=== PATIENT | male | born 1995 | race Caucasian/White ===

== ENCOUNTER 2023-01-18 08:57 | Emergency (ER) | payer BC, SELFPAY ==
[2023-01-18 09:10] VITALS: BP 144/93; PULSE 83; RESP 16; TEMP 36.5; O2SAT 99; BMI 21.9
--- NOTE | 2023-01-18 09:23 | ED.GENADULT ---
HPI - General Adult General Chief complaint: Animal Bite Stated complaint: dog bite Time Seen by Provider: 01/18/23 09:11 History of Present Illness HPI narrative: Patient is a 19-year-old diabetic male who got bit by a stray dog today did not capture the dog does not know the dog's whereabouts. He thinks he is up-to-date on tetanus but we will check that with the state. He has a small puncture wound and several scratches about his right hand the puncture wound is over his volar PIP area. No other injuries reported. No fevers. He does report the fingers little bit stiff. Related Data Home Medications Medication Instructions Recorded Confirmed insulin lispro 100 unit/mL 0 - 90 unit subcut DAILY 01/18/23 01/18/23 subcutaneous solution (Humalog U-100 Insulin) Previous Rx's Medication Instructions Recorded amoxicillin 875 mg-potassium 1 tab PO BID #10 tabs 01/18/23 clavulanate 125 mg tablet Allergies Allergy/AdvReac Type Severity Reaction Status Date / Time No Known Drug Allergies Allergy Verified 01/18/23 09:10 Review of Systems Status of ROS: Reports: 6 or more systems reviewed and unremarkable except as noted in History and below PFSH PFS Social History Smoking Status: Never smoker How often do you have a drink containing alcohol: 2-4 times a month AUDIT-C Alcohol total score: 2 Non-prescribed substance use: denies use Exam Narrative: Exam Narrative: Objective afebrile Puncture wound noted in breaking of the skin on the right index finger just distal to the PIP joint on the volar surface several scratches noted about the right hand as well. Const: Vital Signs, click to edit/add: Vital Signs - 24 hr 01/18/23 09:10 Temperature 97.7 F Pulse Rate [Pulse Oximeter] 83 Respiratory Rate 16 Blood Pressure [Ri ght Upper Arm] 144/93 H Pulse Oximetry 99 Oxygen Delivery Me thod Room Air Course Vital Signs Vital signs: Initial Vital Signs Temperature 97.7 F 01/18/23 09:10 Temperature Source Temporal Artery Scan 01/18/23 09:10 Pulse Rate 83 01/18/23 09:10 Pulse Rhythm Regular 01/18/23 09:10 Respiratory Rate 16 01/18/23 09:10 Blood Pressure 144/93 H 01/18/23 09:10 Blood Pressure Mean 110 H 01/18/23 09:10 Blood Pressure Position Sitting 01/18/23 09:10 Pulse Oximetry 99 01/18/23 09:10 Oxygen Delivery Method Room Air 01/18/23 09:10 Vital Signs Temperature 97.7 F 01/18/23 09:10 Pulse Rate 83 01/18/23 09:10 Respiratory Rate 16 01/18/23 09:10 Blood Pressure 144/93 H 01/18/23 09:10 Pulse Oximetry 99 01/18/23 09:10 Oxygen Delivery Method Room Air 01/18/23 09:10 Temperature 97.7 F 01/18/23 09:10 Pulse Rate 83 01/18/23 09:10 Respiratory Rate 16 01/18/23 09:10 Blood Pressure 144/93 H 01/18/23 09:10 Pulse Oximetry 99 01/18/23 09:10 Oxygen Delivery Method Room Air 01/18/23 09:10 Medications Administered Medications: Discontinued Medications Generic Name Dose Route Start Last Admin Trade Name Elisabeth PRN Reason Stop Dose Admin Rabies Immune Globulin 1,275 unit 01/18/23 09:22 01/18/23 10:00 Rabies Immune Globulin 150 Unit/Ml Inj 20 unit/kg (1275 unit) 01/18/23 09:23 1,275 unit INFILTRATI Administration ONCE ONE Rabies Vaccine 2.5 unit 01/18/23 09:22 01/18/23 10:00 Rabies Vaccine 2.5 Unit/Ml Syringe IM 01/18/23 09:23 2.5 unit .ONCE ONE Administration Medical Decision Making MDM Narrative Medical decision making narrative: [age] year white male with a stray dog bite that punctured the skin. Discussed with the [place] department of Health, they recommended he get rabies immune globulin and vaccine. This will be ordered. Would also start Augmentin 875 b.i.d. x 5 days. Recheck with regular doctor as needed, warm soaks and squeeze the sponge several times a day and soapy water. Light use of the hand for couple of days. Return as needed. Discharge Plan Discharge Clinical Impression: Dog bite Patient Disposition: Home, Self-Care Condition: Stable Additional Instructions: Light activity, frequents warm soaks in the right index finger, Augmentin as mentioned, monitor blood sugar, return to regular doctor next few days not improving changes or concerns. We will notify law enforcement. The [place] department of [facility] states that you need rabies immunoglobulin and vaccine, he will need this in 3 more doses of the vaccine. This would be on day 3 after the bite, 7 days, 14 days after the bite. Activity Level: No Restrictions Discharge Diet: Regular Prescriptions: New amoxicillin-pot clavulanate 875-125 mg tablet 1 tab PO BID Qty: 10 0RF No Action insulin lispro [Humalog U-100 Insulin] 100 unit/mL solution 0 - 90 unit subcut DAILY Stand Alone Forms: [employer] Info Instructions
--- NOTE | 2023-01-18 09:23 | ED.NURSE ---
Dog bite reported to [place] [employer]: black and huntley mid-size (40lb?) mutt that ran up to patient biting him in the right hand this morning, then ran away. This occured at the [facility] in [place].
[2023-01-18] MEDS: RABIES IMMUNE GLOBULIN 150 UNIT/ML INJ 1275 UNIT INFILTRATI (10:00)
--- NOTE | 2023-01-18 10:22 | ED.NURSE ---
pt will come back here for outpatient rabies vaccine, order faxed to pharmacy, talked to gabriella.
--- NOTE | 2023-01-18 20:46 | ED.NURSE ---
patient came back to the ER questioning where his perscription was sent. [facility] Counsel[facility] informed him that it had been sent to [facility] in [place]
== END 2023-01-18 10:22 | disposition home or self-care (01) ==
LOC: ED 09:23
PROVIDERS: Emergency Provider Family Medicine
DX: S61.451A Open bite of right hand, initial encounter (principal); W54.0XXA Bitten by dog, initial encounter
CPT/HCPCS: 90377; 90675; 96372; 99283; 99284